=== PATIENT | male | born 1980 | race Caucasian/White ===

== ENCOUNTER 2020-08-19 06:11 | Observation (INO) | payer MEDICAID ==
[~2020-08-19] VITALS: Ht 170.2 cm; Wt 108.1 kg
[2020-08-19] MEDS ORDERED: SODIUM CHLORIDE FLUSH 10ML SYR IVF ONE (06:30)
[2020-08-19] MEDS ORDERED: NITROGLYCERIN SINGLE TAB 0.4 MG SL PRN (06:30)
--- NOTE | 2020-08-19 06:43 | NUR ---
bib ems. pt having chest pain for about 2 days, pain coming and going per pt. pt feeling palpitations. pt given 1 nitro, 324 asprin, and 4 mg po zofran enroute. pt stated 2/10 pain upon arriaval, no sob. pt states pain gets worse when laying down as well. pt placed on all monitors, ekg taken, piv established and labs sent. pt refused nitro at this time, mother at bedside, no other needs at this time
[2020-08-19 06:46] LABS: BASOPHILS % (AUTO) 0 % (0-1); EOSINOPHILS % (AUTO) 6 % (1-7); LYMPHOCYTES % (AUTO) 47 % (22-44); MEAN CORPUSCULAR HEMOGLOBIN 30.6 pg (27.5-34.5); MEAN CORPUSCULAR HGB CONC 34.5 g/dL (33.2-36.2); MEAN PLATELET VOLUME 8.8 fL (7.4-10.4); MONOCYTES % (AUTO) 7 % (2-9); NEUTROPHILS % (AUTO) 40 % (42-75); PLATELET COUNT 296 x10^3/uL (130-400); RED BLOOD COUNT 4.92 x10^6/uL (4.38-5.82); RED CELL DISTRIBUTION WIDTH 13.1 % (9.4-14.8)
[2020-08-19] MEDS ORDERED: ONDANSETRON 2MG/ML, 2ML ONE (06:50)
[2020-08-19 06:54] LABS: ALANINE AMINOTRANSFERASE 47 U/L (12-78); ALBUMIN 3.9 g/dL (3.4-5.0); ANION GAP 5 mmol/L (5-15); CALCIUM 8.8 mg/dL (8.5-10.1); CHLORIDE 107 mmol/L (98-107)
[2020-08-19 06:59] LABS: ALKALINE PHOSPHATASE 40 U/L (45-117); BILIRUBIN,TOTAL 0.5 mg/dL (0.2-1.0); CREATININE 0.93 mg/dL (0.7-1.3); TOTAL PROTEIN 7.8 g/dL (6.4-8.2); TROPONIN I < 0.015 ng/mL (0.000-0.045)
[2020-08-19] MEDS ORDERED: ONDANSETRON 2MG/ML, 2ML IVPush ONE (07:00)
--- NOTE | 2020-08-19 07:02 | NUR ---
report given to patricia rn
[2020-08-19 07:17] LABS: MD SCAN
--- NOTE | 2020-08-19 07:23 | NUR ---
assumed pt care, pt resting comfortably.
[2020-08-19] MEDS ORDERED: SODIUM CHLORIDE FLUSH 10ML SYR IVF PRN (07:30)
--- NOTE | 2020-08-19 08:14 | NUR ---
SB[facility] REPORT TO ALFREDO. GOING TO 527.
[2020-08-19 08:52] VITALS: BP 112/75
[2020-08-19 10:19] LABS: TROPONIN I < 0.015 ng/mL (0.000-0.045)
[2020-08-19] MEDS ORDERED: HEPARIN 5,000 UNITS/ML, 1ML SQ SCH (10:30)
[2020-08-20] MEDS ORDERED: ASPIRIN 325 MG TABLET EC PO SCH (06:00)
== END 2020-08-19 13:00 | disposition home or self-care (01) ==
LOC: ED 06:56 → INTOOBSV 07:18 → EDIP 07:18 → SUATTDRO 07:22 → 5SO 08:31 → DCLOUNGE 12:57
PROVIDERS: ADMIT Family Medicine; ATTEND Family Medicine
DX: R07.89 Other chest pain (principal); I20.0 Unstable angina; D72.829 Elevated white blood cell count, unspecified; E66.9 Obesity, unspecified; F17.200 Nicotine dependence, unspecified, uncomplicated; Z68.37 Body mass index [BMI] 37.0-37.9, adult; Z79.899 Other long term (current) drug therapy
CPT/HCPCS: 36415; 71045; 80053; 84484; 85025; 93005; 93017; 96374; 99285; G0378; J2405